=== PATIENT | male | born 1945 | race Hispanic/Latino ===

== ENCOUNTER → 2019-07-25 | Outpatient (CLI) | payer MEDICARE ==
--- NOTE | 2019-07-25 14:32 | Diagnostic Imaging Report ---
EXAM: US ABDOMEN COMPLETE DATE: 07/25/2019 2:00 PM INDICATION: Abdominal pain COMPARISON: None TECHNIQUE: Transverse and longitudinal lyon scale and color doppler sonographic images of the upper abdomen were obtained. FINDINGS: LIVER 16.6 cm in the right midclavicular line. Increased echogenicity of the liver with normal contour, no masses. SPLEEN 9.4 cm in maximum diameter. Normal echogenicity, no masses. GALLBLADDER No gallbladder wall thickening, distension, stone, or pericholecystic fluid. Negative reported sonographic Lewis's sign. The gallbladder wall measures 4mm BILE DUCTS No intra nor extra-hepatic biliary dilation. Common bile duct measures 3mm PANCREAS: Visualized portions are normal. RIGHT KIDNEY: 10.0 cm Echogenicity: Normal Collecting System: No hydronephrosis Stones: None Cyst/Mass: None LEFT KIDNEY: 10.6 cm Echogenicity: Normal Collecting System: No hydronephrosis Stones: None Cyst/Mass: None VESSELS: Aorta: Visualized portions are within normal size limits Inferior Vena Cava: Visualized portions are normal Main Portal Vein: 0.6 cm, normal size with hepatopetal flow. FREE FLUID: None IMPRESSION: Hepatic steatosis. No cholelithiasis or sonographic evidence of cholecystitis. No renal calculi or hydronephrosis. Signed by: Radha Crane MD on 07/25/2019 2:29 PM
--- NOTE | 2019-07-25 14:42 | Diagnostic Imaging Report ---
Exam: KUB - 2 views Indication: Epigastric abdominal pain Comparison: Abdominal ultrasound of earlier the same day Findings: Nonobstructive bowel gas pattern. No free air. No acute osseous injury. No radiographically apparent urinary calculi. Sternotomy wires in place. Partially visualized lung bases appear clear. Impression: No acute radiographic abnormality. Signed by: Radha Crane MD on 07/25/2019 2:39 PM
== END ==
LOC: RAD 07-24 14:17
PROVIDERS: ATTEND Internal Medicine
DX: R10.13 Epigastric pain (principal)
CPT/HCPCS: 74019; 76700

== ENCOUNTER → 2019-10-01 | Outpatient (CLI) | payer MEDICARE ==
--- NOTE | 2019-10-01 12:31 | Diagnostic Imaging Report ---
X-ray lumbar spine History: Back pain Findings: 5 lumbar type vertebrae. No spondylolisthesis or spondylolysis. No lytic or blastic lesions. Loss of intervertebral disc height at L2-L3 level and less pronounced at L3-L4 and L5-S1 levels. Osteophyte formation. Facet joint arthritis. Incidental note of atherosclerotic calcification. 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 Signed by: Sanju Nice MD on 10/01/2019 12:27 PM
--- NOTE | 2019-10-01 12:43 | Diagnostic Imaging Report ---
X-ray sacrum AP and lateral. History: Pain Findings: No acute fracture or subluxation. No lytic or blastic lesions. Osseous bridging across the superior aspect of the symphysis pubis is noted. This is a rare abnormality and may be associated with diffuse idiopathic skeletal hyperostosis. Impression: No acute fracture or subluxation. Please above. Signed by: Sanju Nice MD on 10/01/2019 12:40 PM
== END ==
LOC: RAD 11:28
PROVIDERS: ATTEND Internal Medicine
DX: M47.816 Spondylosis without myelopathy or radiculopathy, lumbar region (principal)
CPT/HCPCS: 72110; 72220